=== PATIENT | female | born 1930 | race Caucasian/White ===

== ENCOUNTER → 2016-12-07 | Outpatient (CLI) | payer MEDICARE, OTHER | END | disposition home or self-care (01) | LOC: PCVCCLINIC 11:52 | PROVIDERS: ATTEND Internal Medicine Cardiovascular Disease | DX: I25.10 Atherosclerotic heart disease of native coronary artery without angina pectoris (principal); I77.89 Other specified disorders of arteries and arterioles; I70.1 Atherosclerosis of renal artery; E78.00 Pure hypercholesterolemia, unspecified; I13.0 Hypertensive heart and chronic kidney disease with heart failure and stage 1 through stage 4 chronic kidney disease, or unspecified chronic kidney disease; I50.9 Heart failure, unspecified; N18.9 Chronic kidney disease, unspecified; J44.9 Chronic obstructive pulmonary disease, unspecified; I51.7 Cardiomegaly; I65.23 Occlusion and stenosis of bilateral carotid arteries; K21.9 Gastro-esophageal reflux disease without esophagitis; R00.1 Bradycardia, unspecified; M40.299 Other kyphosis, site unspecified; Z95.5 Presence of coronary angioplasty implant and graft; Z79.899 Other long term (current) drug therapy; Z88.5 Allergy status to narcotic agent; Z88.8 Allergy status to other drugs, medicaments and biological substances | CPT/HCPCS: 80061; 93005; G0463 ==

== ENCOUNTER → 2017-06-08 | Outpatient (CLI) | payer MEDICARE, OTHER | END | disposition home or self-care (01) | LOC: PCVCCLINIC 11:02 | DX: I65.23 Occlusion and stenosis of bilateral carotid arteries (principal); I25.10 Atherosclerotic heart disease of native coronary artery without angina pectoris; I10 Essential (primary) hypertension; E78.00 Pure hypercholesterolemia, unspecified; I70.1 Atherosclerosis of renal artery; I77.9 Disorder of arteries and arterioles, unspecified; R09.89 Other specified symptoms and signs involving the circulatory and respiratory systems; Z79.899 Other long term (current) drug therapy | CPT/HCPCS: 80061; 93005; 93880; G0463 ==

== ENCOUNTER → 2018-02-06 | Outpatient (CLI) | payer MEDICARE, OTHER ==
--- NOTE | 2018-02-06 12:39 | PCVCIMAG ---
APPROVED REPORT Study performed: 02/06/2018 09:28:15 EXAM: Comprehensive 2D, Doppler, and color-flow Echocardiogram Patient Location: Echo lab Status: routine BSA: 1.84 HR: 73 bpmBP: 136/84 mmHg Rhythm: NSR w/ PACs Other Information Study Quality: Adequate Risk Factors: Cardiac Risk Factors: HTN, Hyperlipidemia Indications CAD obesity 2D Dimensions LVEF(%): 60.31 (>50%) IVSd: 14.57 (7-11mm) LVDd: 34.34 mm PWd: 13.88 (7-11mm)Ascending Ao: 35.60 (22-36mm) LVDs: 23.58 (25-40mm) Left Atrium: 46.00 (27-40mm) Aortic Root: 34.78 mm LV Single Plane 4CH: 59.29 % LV Single Plane 2CH: 54.65 %Negron's LVEF: 56.97 % Biplane EF: 56.2 % Volumes Left Atrial Volume (Systole) Single Plane 4CH: 77.99 mLSingle Plane 2CH: 92.44 mL LA ESV Index: 49.00 mL/m2 Aortic Valve AoV Peak Gabriel.: 1.60 m/s AO Peak Gr.: 10.25 mmHgLVOT Max P.79 mmHg LVOT Max V: 1.09 m/s Mitral Valve E/A Ratio: 0.9 MV Decel. Time: 238.78 ms MV E Max Gabriel.: 1.18 m/s MV A Gabriel.: 1.29 m/s IVRT: 69.20 ms Pulmonary Valve PV Peak Gabriel.: 0.85 m/sPV Peak Gr.: 2.92 mmHg Pulmonary Vein P Vein S: 0.26 m/sP Vein A: 0.33 m/s P Vein D: 0.36 m/sP Vein A Dur.: 121.1 msec P Vein S/D Ratio: 0.72 Tricuspid Valve TR Peak Gabriel.: 3.24 m/s TR Peak Gr.: 41.99 mmHg Left Ventricle The left ventricle is normal size. There is normal LV segmental wall motion. Moderate concentric left ventricular hypertrophy. Left ventricular systolic function is normal. The left ventricular ejection fraction is within the normal range. LVEF is 55-60%. Grade II - pseudonormal filling dynamics. Right Ventricle The right ventricle is normal size. The right ventricular systolic function is normal. Atria Left atrium is severely dilated. The right atrium size is normal. Aortic Valve The aortic valve is normal in structure. Trace aortic regurgitation is present. There is no aortic valvular stenosis. Mitral Valve Mild mitral annular calcification. There is mild-moderate mitral valve regurgitation noted. No evidence of mitral valve stenosis. Tricuspid Valve The tricuspid valve is normal in structure. Moderate tricuspid regurgitation with PAP of 49 mmHg. Pulmonic Valve The pulmonary valve is normal in structure. There is no pulmonic valvular regurgitation. Great Vessels The aortic root is normal in size. IVC is normal in size and collapses with >50% inspiration Pericardium There is no pericardial effusion. There is no pleural effusion. <Conclusion> The left ventricle is normal size. Moderate concentric left ventricular hypertrophy. Grade II - pseudonormal filling dynamics. The right ventricle is normal size. Left atrium is severely dilated. Trace aortic regurgitation is present. There is mild-moderate mitral valve regurgitation noted. Moderate tricuspid regurgitation with PAP of 49 mmHg. The aortic root is normal in size. There is no pericardial effusion.
== END | disposition home or self-care (01) ==
LOC: PCVCIMAG 10:18
PROVIDERS: ATTEND Internal Medicine Cardiovascular Disease
DX: I08.1 Rheumatic disorders of both mitral and tricuspid valves (principal); I25.10 Atherosclerotic heart disease of native coronary artery without angina pectoris; I48.91 Unspecified atrial fibrillation; K21.9 Gastro-esophageal reflux disease without esophagitis; I50.9 Heart failure, unspecified; I10 Essential (primary) hypertension; E78.00 Pure hypercholesterolemia, unspecified; I70.1 Atherosclerosis of renal artery; J44.9 Chronic obstructive pulmonary disease, unspecified; Z87.891 Personal history of nicotine dependence; Z79.899 Other long term (current) drug therapy
CPT/HCPCS: 80061; 93005; 93306; G0463